=== PATIENT | female | born 1975 | race African-American/Black ===

== ENCOUNTER 2022-07-21 08:05 | Emergency (ER) | payer SELFPAY ==
[2022-07-21] MEDS ORDERED: Meclizine 25 MG Tab ONE (08:45)
[2022-07-21] MEDS ORDERED: Meclizine 25 MG Tab PO ONE (08:59)
[2022-07-21 09:16] LABS: CARBON DIOXIDE,CO2 29.4 mmol/L (21.0-32.0); POTASSIUM,K 3.7 mmol/L (3.5-5.1)
== END 2022-07-21 10:12 | disposition home or self-care (01) ==
LOC: MW.ED 08:05
DX: R42 Dizziness and giddiness (principal); H66.91 Otitis media, unspecified, right ear; I10 Essential (primary) hypertension
CPT/HCPCS: 36415; 70450; 80053; 81003; 84484; 85025; 93005; 99284; A9270